=== PATIENT | female | born 1990 | race Caucasian/White ===

== ENCOUNTER 2018-08-10 06:25 | Inpatient (IN) | payer BC ==
[~2018-08-10] VITALS: Ht 167.6 cm; Wt 93.2 kg
[~2018-08-10 06:25] MED LIST: BIRTH CONTROL PILLS; NO HOME MEDICATIONS
[2018-08-25] VITALS (19 sets, daily range): BP systolic 96–136; BP diastolic 53–87; PULSE 82–98; TEMP 97.4–98.7
[2018-08-25] MEDS ORDERED: PRENATAL (07:44)
--- NOTE | 2018-08-25 10:09 | NUR ---
1009-[id number] Kellogg ambulatory to room 210 for scheduled primary c/s for breech. Reports good FM, denies LOF or VB. Assisted into gown and placed on EFM. Reviewed plan of care. Assessment complete. 1030-IV to right forearm. Blood collected and sent to lab. Consents reviewed and signed. LR infusing per md orders.
[2018-08-25 10:53] LABS: BASO % 0.4 % (0.0-2.0); EOS # 0.1 (0.0-0.7); EOS % 1.3 % (0-4.0); GRAN # 6.4 (1.4-6.5); GRAN % 64.2 % (42.2-75.2); HEMATOCRIT 39.1 % (37.0-47.0); HEMOGLOBIN 13.3 g/dl (12.5-16.0); LYMPH # 2.5 (1.2-3.4); LYMPH % 24.4 % (20.0-51.0); MEAN CELL VOLUME 87 fl (80.0-100.0); MEAN CORPUSCULAR HEMOGLOBIN 30 pg (27.0-31.0); MEAN CORPUSCULAR HGB CONC 34 g/dl (33.0-37.0); MEAN PLATELET VOLUME 11.3 fl (7.4-10.4); MONO # 0.9 (0.1-0.6); PLATELET COUNT 313 K/mm3 (130-400); RED BLOOD COUNT 4.48 M/mm3 (4.10-5.30); REDCELL DISTRIBUTION WIDTH-CV 13.4 % (11.5-14.5)
--- NOTE | 2018-08-25 12:00 | NUR ---
1200-Dr. Cadena at bedside discussing plan of care. Bedside sono, breech presentation confirmed. 1208-Ambulatory to OR with spouse.
--- NOTE | 2018-08-25 13:10 | NUR ---
1310-Patient to PACU via bed. LR infusing to RFA. A&Ox4, VSS, see recovery flow record. Abdominal dressing C/D/I,Binder in place. Fundal massage firm, lochia WNL. Crowe to DD, clear yellow urine. Recieved report from GEORGE Patrick.
--- NOTE | 2018-08-25 13:45 | NUR ---
8705-Patient remains A&O, updated on plan of care. To room via bed. Denies pain, tolerating PO. Spouse at bedside. in arms
[2018-08-27 17:31] VITALS: BP 119/68; PULSE 74; TEMP 98.3
--- NOTE | 2018-08-27 19:39 | NUR ---
Pt resting in room. Bed in low and locked position. Call light and belonings in reach. PM meal ordered. D/c board updated. Denies further needs at this time.
--- NOTE | 2018-08-27 19:41 | NUR ---
Bedside shift report received from off going PRESS WRITER Johanna Shafer. Care taken over by this RN.
[2018-08-27 21:55] VITALS: BP 115/69; PULSE 77; TEMP 97.5
[2018-08-28 09:05] LABS: HEMATOCRIT 37.2 % (37.0-47.0); HEMOGLOBIN 12.1 g/dl (12.5-16.0)
[2018-08-28 10:06] VITALS: BP 124/82; PULSE 81; TEMP 98
== END 2018-08-28 11:45 | disposition home or self-care (01) | DRG 788 ==
LOC: OB 08-25 06:22 → LDR 08-25 06:24 → OB 08-25 10:04
PROVIDERS: ADMIT Obstetrics & Gynecology
PROC: 10D00Z1 Extraction of Products of Conception, Low, Open Approach (ICD-10-PCS; principal; 2018-08-25)
DX: O32.1XX0 Maternal care for breech presentation, not applicable or unspecified (principal); Z3A.39 39 weeks gestation of pregnancy; Z37.0 Single live birth; O34.211 Maternal care for low transverse scar from previous cesarean delivery
CPT/HCPCS: J0690; J1885; J2370; J2405; J2590; J3010; J7120

== ENCOUNTER → 2019-01-17 | Outpatient (CLI) | payer BC ==
[~2019-01-17] MED LIST changes: +PRENATAL
--- NOTE | 2019-01-17 14:28 | NUR ---
Pt, Lamar Monge, presents for outpatient consult with 4 month old baby girl, Chanda Najera, because Chanda has decreased on the growth charts. Chanda was born on [birth year] and weighed 7#13oz. Pt reports Chanda weighed 11#15.7oz one week ago. Today she weighs 12#3.8oz (5550 gms). Pt states she has added 2oz formula with rice cereal once daily. Chanda is not receptive to bottle feedings, taking a maximum of one ounce 1 time, a few other feedings she has been able to drink about 0.5oz EBM or formula. Pt has not pumped in the last 3-4 weeks since Chanda has not been taking the bottle. Pt also states Chanda seems to reject stored breastmilk. LC discusses signs of Lipase in milk that causes it to break down and change the taste which some babies refuse. At this feeding Chanda is fairly distracted and does not nurse as is typical. She has a weight gain of 2.4oz after . POC: Pt advised to continue as frequently as she can. Continue cereal as she has been. Contact Dr. Kulkarni about frequency of cereal, amount of cereal per feeding, and adding additional foods, as well as when to follow up. Pt also advised to try pumping after breastfeedings to help supply, encouraged to use the EBM LUCA if she feels it is not storing well. Consider offering the fresh EBM by bottle after being at the breast. F/U: pt will contact Dr. Kulkarni, Questions invited and answered.
== END ==
LOC: LAC 13:53
DX: Z39.1 Encounter for care and examination of lactating mother (principal); Z71.89 Other specified counseling

== ENCOUNTER 2020-12-28 06:39 | Inpatient (IN) | payer BC ==
[~2020-12-28] VITALS: Ht 167.6 cm; Wt 98.2 kg
[2020-12-31] VITALS (16 sets, daily range): BP systolic 105–138; BP diastolic 69–87; PULSE 65–99; TEMP 98–98.6
--- NOTE | 2020-12-31 09:55 | NUR ---
PATIENT HERE FOR REPEAT SECTION. PATIENT ON EFM, CHANGED INTO GOWN. IV STARTED, CONSENTS SIGNED. ASSESMENT COMPLETE, QUESTIONS ANSWERED. PATIENT IS FEELING BABY MOVE. PATIENT DENIES LEAKING OF FLUID, BLEEDING OR CONTRACTIONS. REPORT GIVEN TO DARBY COWAN AT 2340
[2020-12-31 10:31] LABS: BASO # 0.1 (0.0-0.2); BASO % 0.5 % (0.0-2.0); EOS # 0.1 (0.0-0.7); EOS % 0.7 % (0-4.0); GRAN # 6.8 (1.4-6.5); GRAN % 71.6 % (42.2-75.2); HEMATOCRIT 37.8 % (37.0-47.0); HEMOGLOBIN 12.4 g/dl (12.5-16.0); LYMPH # 1.7 (1.2-3.4); LYMPH % 18.2 % (20.0-51.0); MEAN CELL VOLUME 85 fl (80.0-100.0); MEAN CORPUSCULAR HEMOGLOBIN 28 pg (27.0-31.0); MEAN CORPUSCULAR HGB CONC 33 g/dl (33.0-37.0); MEAN PLATELET VOLUME 11.1 fl (7.4-10.4); MONO # 0.8 (0.1-0.6); MONO % 8.4 % (1.7-9.3); PLATELET COUNT 343 K/mm3 (130-400); RED BLOOD COUNT 4.47 M/mm3 (4.10-5.30); REDCELL DISTRIBUTION WIDTH-CV 13.5 % (11.5-14.5)
[2021-01-01 03:30] VITALS: BP 120/69; PULSE 72; TEMP 97.7
[2021-01-01 06:50] LABS: HEMOGLOBIN 11.1 g/dl (12.5-16.0)
[2021-01-01 06:53] LABS: HEMATOCRIT 34.8 % (37.0-47.0)
[2021-01-01 07:27] VITALS: BP 111/83; PULSE 79; TEMP 98
[2021-01-01] MEDS ORDERED: IBU600 MG PO (10:31)
[2021-01-01] MEDS ORDERED: PERCOCET 325 MG1 TA2 PO (10:32)
[2021-01-01 11:47] VITALS: BP 125/82; PULSE 92; TEMP 98
--- NOTE | 2021-01-01 13:22 | NUR ---
Initial visit attempt; Nurse present, Network Mgr left card of congratulations and God's blessings for the of their daughter along with information regarding the availability of spiritual care at [facility].
[2021-01-01 16:07] VITALS: BP 114/86; PULSE 88; TEMP 98
[2021-01-01 20:30] VITALS: BP 121/76; PULSE 83; TEMP 98.7
[2021-01-02 07:17] VITALS: BP 135/86; PULSE 86; TEMP 97.9
--- NOTE | 2021-01-02 15:30 | NUR ---
Discharge instructions and follow up care reviewed with pt at the bedside. Pt verbalized an understanding, agreed with the plan and states no questions or concerns at this time.
== END 2021-01-02 16:20 | disposition home or self-care (01) | DRG 788 ==
LOC: OB 06:39
PROVIDERS: ADMIT Obstetrics & Gynecology
PROC: 10D00Z1 Extraction of Products of Conception, Low, Open Approach (ICD-10-PCS; principal; 2020-12-31)
DX: O34.211 Maternal care for low transverse scar from previous cesarean delivery (principal); O69.1XX0 Labor and delivery complicated by cord around neck, with compression, not applicable or unspecified; Z37.0 Single live birth; Z3A.39 39 weeks gestation of pregnancy
CPT/HCPCS: J0690; J1885; J2175; J2405; J2590; J7120